=== PATIENT | female | born 1980 | race Two or more races ===

== ENCOUNTER → 2021-03-25 | Emergency (ER) | payer OTHER ==
[~2021-03-25] VITALS: Ht 154.9 cm; Wt 56.7 kg
== END | disposition home or self-care (01) ==
LOC: ER 15:05
DX: N83.292 Other ovarian cyst, left side (principal); D25.9 Leiomyoma of uterus, unspecified; N92.1 Excessive and frequent menstruation with irregular cycle

== ENCOUNTER 2021-07-16 15:46 | Emergency (ER) | payer OTHER ==
[~2021-07-16] VITALS: Ht 154.9 cm; Wt 54.4 kg
[2021-07-28] MEDS ORDERED: CANABIS (08:47)
[2021-07-28] MEDS ORDERED: CENTRUM ADULTS1 EACH PO (08:48)
== END 2021-07-16 18:54 | disposition home or self-care (01) ==
LOC: ER 15:46
DX: B34.9 Viral infection, unspecified (principal); Z03.818 Encounter for observation for suspected exposure to other biological agents ruled out

== ENCOUNTER 2021-08-01 07:00 | Day surgery (SDC) | payer OTHER ==
[~2021-08-01 07:00] MED LIST: CANABIS; CENTRUM ADULTS1 EACH PO
== END 2021-08-01 17:05 | disposition home or self-care (01) ==
LOC: CIR.AMB 07:00
PROVIDERS: ATTEND Obstetrics & Gynecology
DX: N70.91 Salpingitis, unspecified (principal); Z20.822 Contact with and (suspected) exposure to COVID-19